=== PATIENT | male | born 1945 | race Caucasian/White ===

== ENCOUNTER 2018-02-15 07:52 | Day surgery (SDC) | payer MEDICARE, OTHER ==
[2018-02-12 09:38] VITALS: BMI 33.2
[~2018-02-15 07:52] MED LIST: DEXAMETHASONE SOD PHOSPHATE 10 MG/ML 1 ML VIAL IV ONE; HEPARIN SODIUM,PORCINE 5,000 UNIT/ML 1 ML VIAL SQ ONE; HYDROmorphone 0.5 MG/0.5 ML SYRINGE IVP PRN; LACTATED RINGERS 1,000 ML IV SCH; LIDOCAINE 1% 20 ML VIAL (10MG/ML) FOR IV START INTRADERMA PRN; ONDANSETRON 4 MG/2 ML VIAL IVP ONE; Pre Op ABX Message 1 EACH MISC MISCELLANE ONE; SCOPOLAMINE 1.5MG/72HR PATCH TRANSDERM ONE
--- NOTE | 2018-02-15 09:39 | P.GSHP ---
History of Present Illness H&P Date: 02/15/18 Chief Complaint: Basal cell carcinoma left shoulder This is a 72-year-old male who was previously diagnosed with left shoulder basal cell carcinoma. Patient is today for wide local excision. Past Medical History Past Medical History: Asthma, Cancer, Hyperlipidemia, Hypertension, Prostate Disorder Additional Past Medical History / Comment(s): hx. skin cancer, prostate cancer- no surgery or tx. yet-dr. monitoring History of Any Multi-Drug Resistant Organisms: None Reported Past Surgical History: Heart Catheterization, Hernia Repair, Orthopedic Surgery Additional Past Surgical History / Comment(s): repair of left elbow fx., colonoscopy Past Anesthesia/Blood Transfusion Reactions: Previous Problems w/ Anesthesia Additional Past Anesthesia/Blood Transfusion Reaction / Comment(s): slow to wake up after a colonoscopy Smoking Status: Former smoker - Past Family History Brother(s) Family Medical History: Cancer Additional Family Medical History / Comment(s): prostate,melanoma Sister(s) Family Medical History: Cancer Additional Family Medical History / Comment(s): lung Medications and Allergies Home Medications Medication Instructions Recorded Confirmed Type Aspirin 162.5 mg PO DAILY 02/12/18 02/15/18 History Beclazone Inhaler 2 puff INHALATION BID 02/12/18 02/15/18 History Cholecalciferol [Vitamin D3] 1,000 unit PO DAILY 02/12/18 02/15/18 History Citalopram Hydrobromide 20 mg PO DAILY 02/12/18 02/15/18 History [Citalopram HBr] Losartan Potassium [Cozaar] 100 mg PO DAILY 02/12/18 02/15/18 History Metoprolol Succinate [Toprol XL] 25 mg PO HS 02/12/18 02/15/18 History Multivitamin [Men's Multi-Vitamin] 1 each PO DAILY 02/12/18 02/15/18 History [place]-3 Fatty Acids/Fish Oil [Fish 1 each PO DAILY 02/12/18 02/15/18 History Oil 1,000 mg Softgel] Simvastatin [Zocor] 40 mg PO HS 02/12/18 02/15/18 History Vitamin B Complex 1 each PO DAILY 02/12/18 02/15/18 History amLODIPine [Norvasc] 5 mg PO DAILY 02/12/18 02/15/18 History Allergies Allergy/AdvReac Type Severity Reaction Status Date / Time No Known Allergies Allergy Verified 02/15/18 08:45 Surgical - Exam Vital Signs Temp Pulse Resp BP Pulse Ox 97.9 F 65 16 144/77 99 02/15/18 08:50 02/15/18 08:50 02/15/18 08:50 02/15/18 08:50 02/15/18 08:50 - General well developed, no distress - Eyes PERRL - ENT normal pinna - Neck no masses - Respiratory normal expansion - Cardiovascular Rhythm: regular - Abdomen Abdomen: soft, non tender - Integumentary 1 cm basal cell carcinoma of left shoulder Assessment and Plan Assessment: Left shoulder basal carcinoma. We'll perform excision.
[2018-02-15] MEDS ORDERED: fentaNYL (PF) 50 MCG/ML 2 ML AMP ONE (09:58)
[2018-02-15] MEDS ORDERED: PHENYLEPHRINE-0.9% NACL SYG 1 MG/10 ML SYRINGE ONE (09:58)
[2018-02-15] MEDS ORDERED: PROPOFOL 10 MG/ML 20 ML VIAL IV ONE (09:58)
[2018-02-15] MEDS ORDERED: LIDOCAINE 1% INJ 10MG/ML (20 ML MDV) ONE (09:58)
[2018-02-15] MEDS ORDERED: MIDAZOLAM 2 MG/2 ML VIAL ONE (09:58)
[2018-02-15] MEDS ORDERED: SUCCINYLCHOLINE CHLORIDE 100 MG/5 ML SYR IV ONE (09:58)
[2018-02-15] MEDS ORDERED: ePHEDrine SULFATE/0.9% NACL/PF 50 MG/5 ML SYRINGE IV ONE (09:58)
[2018-02-15] MEDS ORDERED: BUPIVACAIN-EPI 0.5%-1:200,000 30 ML VIAL SQ ONE ×2 (10:31)
[2018-02-15 10:50] VITALS: TEMP 97.4
[2018-02-15 11:04] VITALS: RESP 16
--- NOTE | 2018-02-15 11:09 | P.OP ---
Date of Procedure: 02/15/18 Preoperative Diagnosis: Basal cell carcinoma left shoulder Postoperative Diagnosis: Basal cell carcinoma left shoulder Procedure(s) Performed: Wide local excision of basal cell left shoulder Anesthesia: DEANNA Surgeon: Aden Scott Pathology: other (Basal cell carcinoma left shoulder) Condition: stable Disposition: PACU Description of Procedure: Patient's placed on the operative table lateral position. He received general anesthesia. His left shoulder was prepped and draped usual sterile fashion. Elliptical skin incision was made around the lesion. The lesion measured approximately 3 x 2 cm. The Bovie hemostasis. The skin was closed interrupted 3-0 nylon suture. Dermabond was applied. Patient top procedure well and was sent to recovery room stable condition.
[2018-02-15 11:49] VITALS: BP 122/75; PULSE 85
== END 2018-02-15 12:16 | disposition home or self-care (01) ==
LOC: OR 07:52
PROVIDERS: ATTEND Surgery
DX: C44.619 Basal cell carcinoma of skin of left upper limb, including shoulder (principal); I10 Essential (primary) hypertension; G47.33 Obstructive sleep apnea (adult) (pediatric); F39 Unspecified mood [affective] disorder; E78.5 Hyperlipidemia, unspecified; J44.9 Chronic obstructive pulmonary disease, unspecified; C61 Malignant neoplasm of prostate; K21.9 Gastro-esophageal reflux disease without esophagitis; Z99.89 Dependence on other enabling machines and devices; Z85.828 Personal history of other malignant neoplasm of skin; Z87.891 Personal history of nicotine dependence; Z79.82 Long term (current) use of aspirin; Z79.899 Other long term (current) drug therapy
CPT/HCPCS: 88305; 11603; J2250; J1644; J1100; J2405; J2001; J3010; J2370; J0330; J2704

== ENCOUNTER → 2018-05-04 | Outpatient (CLI) | payer MEDICARE, OTHER ==
--- NOTE | 2018-05-06 16:32 | MR ---
EXAMINATION TYPE: MR Prostate wo/w con DATE OF EXAM: 05/04/2018 COMPARISON: None IMAGE QUALITY: Good. INDICATION: Prostate Cancer PSA: 4.8 ng/ml Recent Biopsy and Date: 07/07/2015 and 07/11/2016 Pathology Report (If Applicable): In 2017 5% Nadya 6 prostate carcinoma was identified within the r ight lateral apex. In 2016 5% Nady[place] 6 prostate carcinoma was identified within the left apex. TECHNIQUE: Examination was performed using a 3T MRI without an endorectal coil. Multiparametric imaging was perf ormed with T2 mutliplanar sequences, axial diffusion weighted imaging and dynamic contrast enhanced i maging, utilizing 10 mL intravenous Gadavist gadolinium contrast. FINDINGS: There is no clinically significant cancer identified. PROSTATE VOLUME: 6.7 x 5.2 x 6.4 cm corresponds to a volume of 116 PSA DENSITY: 13.9 ng/ml/cc There is a 4 mm circumscribed T2 hypointense region within the right lateral peripheral zone apex dem onstrating focal mild hypointensity on ADC map and focal mild hyperintensity on DWI. This may corresp ond with the biopsy-proven Nadya 6 carcinoma without perineural invasion. No focal or early contras t enhancement is seen. Ill-defined hypodensity within the left peripheral zone apex is seen on image 17 of a small field-of- view T2 weighted images without suspicious features on ADC map or DWI. Within the remainder the peripheral zone there are numerous wedge-shaped areas of hypointensity most compatible with fibrosis or prostatitis. There are circumscribed hypointense and heterogenous encapsu lated nodules throughout the transitional zone compatible with moderate benign prostatic hyperplasia. Trabeculation of the urinary bladder wall suggests chronic bladder outlet obstruction sequela. IMPRESSION: 1. PI-RADS 3-. Clinically significant cancer is equivocal regarding a 4 mm focal lesion in the right lateral peripheral zone apex. Highest Assessment Category: 3 2. Findings compatible with moderate benign prostatic hyperplasia and findings suggesting chronic uri nary bladder outlet obstruction. False negative rates for MRI range from 5-20% depending on risk profile. Assessment Categories: 1 ? Very low (clinically significant cancer is highly unlikely to be present) 2 ? Low (clinically significant cancer is unlikely to be present) 3 ? Intermediate (the presence of clinically significant cancer is equivocal) 4 ? High (clinically significant cancer is likely to be present) 5 ? Very high (clinically significant cancer is highly likely to be present) Locations: PZ = peripheral zone; TZ = transition zone CZ=central zone; AFS = anterior fibromuscular stroma a=anterior half (i.e. PZa=anterior half of peripheral zone); pm= posterior medial (i.e PZpm) pl = postero-lateral (i.e. PZpl); p = posterior half (i.e. TZp) ; a = anterior half (i.e TZa or P Za) Other: N=no or no; E= equivocal; Y=yes EPE = extraprostatic extension NVB = neurovascular bundle NA = not applicable/not available
== END | disposition home or self-care (01) ==
LOC: RADMRIMAIN 09:05
PROVIDERS: ATTEND Urology
DX: C61 Malignant neoplasm of prostate (principal); N40.0 Benign prostatic hyperplasia without lower urinary tract symptoms
CPT/HCPCS: 72197; A9585

== ENCOUNTER → 2021-08-25 | Outpatient (CLI) | payer MEDICARE, OTHER ==
--- NOTE | 2021-08-28 10:21 | MR ---
EXAMINATION TYPE: MR Prostate wo/w con DATE OF EXAM: 08/25/2021 COMPARISON: Prior prostate MRI May 04, 2018 INDICATION: Prostate ca PSA: 3.7 ng/ml on November 06, 2019 Recent Biopsy and Date: May 13, 2019 Pathology Report (If Applicable): Benign results. Prior biopsy was positive. TECHNIQUE: Examination was performed using a 3T MRI without an endorectal coil. Multiparametric imaging was perf ormed with T2 mutliplanar sequences, axial diffusion weighted imaging and dynamic contrast enhanced i maging, utilizing 10 mL intravenous Gadavist gadolinium contrast. FINDINGS: There is no clinically significant cancer identified. PROSTATE VOLUME: 6.4 cm SI x 6.2 cm AP x 6.6 cm LR Vol= 137.1 cc Predicted PSA equals 16.45 PSA DENSITY: 0.03 ng/ml/cc Markedly enlarged prostate consistent with BPH is redemonstrated. Peripheral zone shows no new areas of diminished signal on ADC mapping with increased signal on diffusion-weighted imaging. Persistent r ight lateral mid to apical level approximate 6 to 7 mm area of diminished signal on ADC mapping with minimal increased signal on diffusion-weighted images. Overall heterogeneity in the central enlarged transitional zone is redemonstrated. No new lesions of significance or suspicious T2 hypointensity. P rostate capsule is maintained. Bladder shows mild wall thickening and trabeculation. 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 No groin herni a or adenopathy is seen. No suspicious bowel dilatation. Diverticula throughout the visualized sigmoi d colon are present. IMPRESSION: A focus of clinically significant cancer is not identified. Highest Assessment Category: 2 MRI Stage: T1c N0 M0 based on review of pelvic images. False negative rates for MRI range from 5-20% depending on risk profile. Assessment Categories: 1 ? Very low (clinically significant cancer is highly unlikely to be present) 2 ? Low (clinically significant cancer is unlikely to be present) 3 ? Intermediate (the presence of clinically significant cancer is equivocal) 4 ? High (clinically significant cancer is likely to be present) 5 ? Very high (clinically significant cancer is highly likely to be present) Locations: PZ = peripheral zone; TZ = transition zone CZ=central zone; AFS = anterior fibromuscular stroma a=anterior half (i.e. PZa=anterior half of peripheral zone); pm= posterior medial (i.e PZpm) pl = postero-lateral (i.e. PZpl); p = posterior half (i.e. TZp) ; a = anterior half (i.e TZa or P Za) Other: N=no or no; E= equivocal; Y=yes EPE = extraprostatic extension NVB = neurovascular bundle NA = not applicable/not available
== END | disposition home or self-care (01) ==
LOC: RADMRIMAIN 07:49
PROVIDERS: ATTEND Urology
DX: C61 Malignant neoplasm of prostate (principal); M87.851 Other osteonecrosis, right femur; M87.852 Other osteonecrosis, left femur
CPT/HCPCS: 72197; A9585

== ENCOUNTER → 2024-06-06 | Outpatient (CLI) | payer MEDICARE, OTHER ==
[2024-06-06 09:44] LABS: Partial Thromboplastin Time 26.1 sec (22.0-30.0); Prothrombin Time 10.8 sec (10.0-12.5)
[2024-06-06 15:33] LABS: Basophils # (A) 0.04 X 10*3/uL (0.00-0.10); Basophils % (A) 0.6 %; Eosinophils % (A) 3.1 %; HCT 43.8 % (39.6-50.0); HGB 14.3 g/dL (13.0-17.0); Lymphocytes # (A) 1.29 X 10*3/uL (0.90-5.00); Lymphocytes % (A) 20.2 %; MCH 30.4 pg (27.0-32.0); MCHC 32.6 g/dL (32.0-37.0); Mean Platelet Volume 10.5 FL (9.5-12.2); Monocytes # (A) 0.54 X 10*3/uL (0.20-1.00); Monocytes % (A) 8.5 %; NRBC Per 100 WBC 0 X 10*3/uL (0.00-0.01); Neutrophils # (A) 4.29 X 10*3/uL (1.80-7.70); Neutrophils % (A) 67.3 %; Platelet Count 205 X 10*3/uL (140-440); RBC 4.71 X 10*6/uL (4.40-5.60); RDW 13.3 % (11.5-14.5); WBC 6.38 X 10*3/uL (4.50-10.00)
[2024-06-06 15:45] LABS: ALT 13 U/L (10-49); AST 16 U/L (14-35); Albumin 4.4 g/dL (3.8-4.9); Albumin/Globulin Ratio 1.69 Ratio (1.60-3.17); Alkaline Phosphatase 70 U/L (41-126); BUN/Creat Ratio 13.73 Ratio (12.00-20.00); Blood Urea Nitrogen 15.1 mg/dL (9.0-27.0); Calcium 9.1 mg/dL (8.7-10.3); Carbon Dioxide 27.3 mmol/L (21.6-31.8); Chloride 105 mmol/L (96-109); Globulin 2.6 g/dL (1.6-3.3); Glucose 141 mg/dL (70-110); Potassium 4.3 mmol/L (3.5-5.5); Sodium 143 mmol/L (135-145); Total Bilirubin 0.4 mg/dL (0.3-1.2)
== END | disposition home or self-care (01) ==
LOC: LABPAT 09:03
PROVIDERS: ATTEND Orthopaedic Surgery
DX: Z01.818 Encounter for other preprocedural examination (principal); Z22.322 Carrier or suspected carrier of Methicillin resistant Staphylococcus aureus; M17.11 Unilateral primary osteoarthritis, right knee; E11.9 Type 2 diabetes mellitus without complications
CPT/HCPCS: 80053; 83036; 85025; 85610; 85730; 87070

== ENCOUNTER → 2024-06-11 | Outpatient (CLI) | payer MEDICARE, OTHER ==
--- NOTE | 2024-06-11 14:59 | CT ---
CT right knee, TRIPP protocol. HISTORY: Knee pain COMPARISON: None TECHNIQUE: Multiple axial images are obtained through the lower extremities without use of IV contras t material. The exam was performed according to the TRIPP protocol FINDINGS: There is moderate osteopenia. There is marked narrowing, moderate hypertrophic spurring and mild subchondral sclerosis in the media l compartment knee consistent with marked osteoarthritis. The lateral joint space is well preserved. There is mild hypertrophic spurring.. The patellofemoral joint space is well-preserved. There is mild hypertrophic spurring indicating mild osteoarthritis. . There is no acute fracture or dislocation. The hips are normal and symmetric bilaterally without fracture, dislocation or arthritic change. The ankles are normal and symmetrical without osteoarthritic change, fracture, dislocation or focal i ntraosseous abnormality. IMPRESSION: 1. Marked osteoarthritis of the medial compartment knee. 2 Mild osteoarthritic changes of the lateral and patellofemoral compartments with well-preserved join t spaces. 4. Unremarkable hips and ankles. [facility], , 06/11/2024 2:56 PM
== END | disposition home or self-care (01) ==
LOC: RADCTMAIN 12:18
PROVIDERS: ATTEND Orthopaedic Surgery
DX: M17.11 Unilateral primary osteoarthritis, right knee (principal)

== ENCOUNTER 2024-06-20 11:05 | Day surgery (SDC) | payer MEDICARE, OTHER ==
[~2024-06-20 11:05] MED LIST changes: -DEXAMETHASONE SOD PHOSPHATE 10 MG/ML 1 ML VIAL IV ONE; -HEPARIN SODIUM,PORCINE 5,000 UNIT/ML 1 ML VIAL SQ ONE; -LACTATED RINGERS 1,000 ML IV SCH; -LIDOCAINE 1% 20 ML VIAL (10MG/ML) FOR IV START INTRADERMA PRN; -ONDANSETRON 4 MG/2 ML VIAL IVP ONE; -Pre Op ABX Message 1 EACH MISC MISCELLANE ONE; -SCOPOLAMINE 1.5MG/72HR PATCH TRANSDERM ONE
[2024-06-20 12:54] LABS: Glucose,Whole Blood 115 mg/dL (70-110)
[2024-06-20] MEDS: MIDAZOLAM 2 MG/2 ML VIAL IV PRN (12:59)
[2024-06-20] MEDS: fentaNYL (PF) 50 MCG/ML 2 ML AMP IVP PRN (12:59)
[2024-06-20] MEDS: IV FLUID CONTINUATION 1,000 ML IV ONE (13:13)
[2024-06-20] MEDS: ONDANSETRON 4 MG/2 ML VIAL IVP STA (13:15)
[2024-06-20] MEDS: dexAMETHasone ORAL SOLUTION 10 MG/ML VIAL PO ONE (13:16)
[2024-06-20] MEDS: FAMOTIDINE 20 MG/2 ML VIAL IV STA (13:16)
[2024-06-20] MEDS: KETOROLAC 15 MG/ML 1 ML VIAL IVP STA (13:20)
[2024-06-20] MEDS: oxyCODONE ER 10 MG TAB.ER.12H PO STA (13:29)
[2024-06-20] MEDS: ACETAMINOPHEN TAB 500 MG TAB PO STA ×2 (13:30→18:05)
--- NOTE | 2024-06-20 14:00 | P.ANPRN ---
Procedure Note - Anesthesia - Nerve Block Performed Right Adductor Canal Single Time Out Performed: Yes (1259) Date of Procedure: 06/20/24 Procedure Start Time: 13:00 Procedure Stop Time: 13:05 Location of Patient: PreOp Indication: Acute Post-Operative Pain, Requested by Surgeon Specifically requested for management of pain by DrMachelle: Adalberto Trevino Sedation Type: Sedate with meaningful contact maintained Preparation: Sterile Prep Position: Supine Catheter: None Needle Types: Pajunk Needle Gauge: 21 Ultrasound used to visualize needle placement: Yes Ultrasound used to observe medication spread: Yes Injectate: 0.5% Ropivacaine (see comment for volume) (15cc+10cc nacl pf) Blood Aspirated: No Pain Paresthesia on Injection Noted: No Resistance on Injection: Normal Image Stored and Saved: Yes Events: Uneventful and Well Tolerated
--- NOTE | 2024-06-20 14:01 | P.ANPRN ---
Procedure Note - Anesthesia - Nerve Block Performed Right iPack Single Time Out Performed: Yes (0229) Date of Procedure: 06/20/24 Procedure Start Time: 13:06 Procedure Stop Time: 13:09 Location of Patient: PreOp Indication: Acute Post-Operative Pain, Requested by Surgeon Specifically requested for management of pain by DrMachelle: Adalberto Trevino Sedation Type: Sedate with meaningful contact maintained Preparation: Sterile Prep Position: Supine Catheter: None Needle Types: Pajunk Needle Gauge: 21 Ultrasound used to visualize needle placement: Yes Ultrasound used to observe medication spread: Yes Injectate: 0.5% Ropivacaine (see comment for volume) (15cc+10cc nacl pf) Blood Aspirated: No Pain Paresthesia on Injection Noted: No Resistance on Injection: Normal Image Stored and Saved: Yes Events: Uneventful and Well Tolerated
[2024-06-20] MEDS ORDERED: MIDAZOLAM 2 MG/2 ML VIAL ONE (14:29)
[2024-06-20] MEDS ORDERED: GLYCOPYRROLATE 0.2 MG/ML 2 ML VIAL ONE (14:29)
[2024-06-20] MEDS ORDERED: PROPOFOL 10 MG/ML 20 ML VIAL IV ONE (14:29)
[2024-06-20] MEDS ORDERED: SODIUM CHLORIDE 0.9% (PF) 10 ML VIAL ONE (14:29)
[2024-06-20] MEDS ORDERED: fentaNYL (PF) 50 MCG/ML 2 ML AMP ONE (14:29)
[2024-06-20] MEDS ORDERED: SUCCINYLCHOLINE CHLORIDE 200 MG/10 ML VIAL IV ONE (14:29)
[2024-06-20] MEDS ORDERED: ROPIVACAINE 5 MG/ML 30 ML VIAL ONE (14:29)
[2024-06-20] MEDS ORDERED: TRANEXAMIC 1,000 MG/100ML-NACL PREMIX BAG ONE (14:29)
[2024-06-20] MEDS ORDERED: ROCURONIUM 10 MG/ML (5 ML VIAL) IV ONE (14:29)
[2024-06-20] MEDS ORDERED: LIDOCAINE 1% INJ 10MG/ML (20 ML MDV) ONE (14:29)
[2024-06-20] MEDS ORDERED: ePHEDrine 50 MG/ML 1 ML VIAL ONE (14:29)
[2024-06-20] MEDS: ROPIVACAINE/EPI/CLONIDINE/KET 50 ML SYRINGE MISCELLANE PRN (15:14)
[2024-06-20] MEDS ORDERED: NALOXONE 0.4 MG/ML 1 ML VIAL IV PRN (16:18)
[2024-06-20] MEDS ORDERED: MAGNESIUM HYDROXIDE 2,400 MG/30 ML CUP PO PRN (16:18)
[2024-06-20] MEDS ORDERED: ONDANSETRON 4 MG/2 ML VIAL IVP PRN (16:18)
[2024-06-20] MEDS ORDERED: HYDROmorphone 0.5 MG/0.5 ML SYRINGE IVP PRN ×2 (16:18)
[2024-06-20] MEDS ORDERED: NA PHOS,M-B/NA PHOS,DI-BA 133 ML ENEMA RECTAL PRN (16:18)
[2024-06-20] MEDS ORDERED: bisacodyL 10 MG SUPP RECTAL PRN (16:18)
[2024-06-20] MEDS ORDERED: diazePAM 5 MG TAB PO PRN (16:18)
[2024-06-20] MEDS ORDERED: TEMAZEPAM 15 MG CAP PO PRN (16:18)
--- NOTE | 2024-06-20 16:18 | P.OP ---
Date of Procedure: 06/20/24 Preoperative Diagnosis: Severe right knee osteoarthritis Postoperative Diagnosis: Same Procedure(s) Performed: 1. Right total knee arthroplasty 2. Computer assisted musculoskeletal navigation using CT/MRI images Implants: 1. [place] [employer] CR Femur Size #4 2. [place] [employer] [place] Tibial Base Size #5 3. [place] [employer] CS poly Size #5, 9-mm 4. [place] [employer] all poly patella, Size #32 Anesthesia: DEANNA, regional Surgeon: Adalberto Trevino Fountain Manager #1: Caden Leone Estimated Blood Loss (ml): 100 IV fluids (ml): 800 Pathology: none sent Condition: stable Disposition: PACU Indications for Procedure: I met with the patient preoperatively in the office setting and discussed treatment of their symptomatic knee arthritis. They failed a long course of nonsurgical treatment and elected to proceed with an elective total knee replacement. I discussed the potential risks and complications at length and gave them ample time to ask questions. Risks discussed included: risks from anesthesia, superficial site surgical infection, acute and/or chronic periprosthetic joint infection, delayed wound healing, drainage, wound necrosis, instability, stiffness, stiffness requiring manipulation and/or revision surgery, damage to local blood vessels or nerves, aseptic loosening of the implants, extensor mechanism issues including disruption, patellar maltracking, avascular necrosis etc., continued or worsened knee pain, generalized dissatisfaction with surgical outcome, need for revision surgery, an inability to regain preinjury level of function, DVT, PE, other medical complications, and possibly loss of life or limb. The patient voiced their understanding that while these are the most common complications other less common complications are possible. They provided both their verbal and written consent to go forward with surgery. Operative Findings: Severe tricompartmental osteoarthritis Description of Procedure: The patient was identified in preoperative holding and the correct operative extremity was verified and marked with a marker. I reviewed the consent form with the patient at length. All of their questions were answered. The patient was given a block by anesthesia. They were then brought back to the operating room. They were transferred onto the operating room table where a general anesthetic, preoperative antibiotics, and tranexamic acid were administered by anesthesia. A tourniquet was applied to the proximal aspect of the operative extremity. The contralateral extremity was padded under the heel and secured to the operating room table with a nonsterile blue towel and tape. The ipsilateral arm was carefully draped across the patient's chest and secured with a pillow and foam. A post was applied over the lateral aspect of the ipsilateral thigh and a bolster was placed under the ipsilateral foot. I verified that the operative extremity was stable and the knee was flexed to 90. The operative extremity was then placed in a leg neff, nonsterile drapes were applied, and the extremity was prepped and draped sterilely in the standard sterile fashion. Prior to starting surgery timeout was performed identifying the correct patient, operative extremity, and procedure. The leg was then elevated, exsanguinated with an Esmarch bandage, and the tourniquet was inflated. An anterior midline incision was made sharply with a scalpel. Once I had dissected deep to the superficial fascial layer medial and lateral flaps were elevated. A medial parapatellar arthrotomy was created. Upon opening the knee joint there were diffuse arthritic changes in all 3 compartments. The anterior horn of the medial meniscus were sharply released and a medial release was performed around the posterior medial corner of the knee to facilitate retractor placement. The fat pad was excised with electrocautery. The patella was found to be severely arthritic and a provisional cut was made with a sagittal saw to facilitate mobilization of the extensor mechanism during the procedure. Remnants of the ACL and PCL were then excised from the notch. 4 mm pins were then placed within the incision in the medial distal femur and proximal tibia. Arrays were applied to the pins and I verified they were completely tightened. The knee was then registered with the myseekit robot and manipulations in implant position were made to balance the knee and opitmize implant position. Using the Benito robotic saw all cuts were made in accordance with our plan. After all bony fragments had been removed the cuts were verified with the planar probe. The tibia was then subluxed forward and sized. The knee was brought into flexion and a lamina internal audit senior manager was placed to allow removal of the meniscal remnants both medially and laterally as well as posterior osteophytes. Local anesthetic was then infiltrated around the joint capsule. Trial implants were then placed within the knee. Range of motion and collateral ligament tension was then evaluated. Adjustments in implant size and position were then made accordingly. Once the knee was felt to be appropriately balanced the Benito pins were removed. The patella was then recut, sized, and punched. A trial patellar button was then placed. With the trial components in place, the patella tracked midline. The femur was then drilled and the trial component removed. The trial tibial component was then appropriately rotated, pinned, and prepared for the keel. All trial components were then removed from the knee. The knee was thoroughly irrigated with pulsatile lavage. Cement was prepared via vacuum mixing in a bowl on the back table. I then hand pressurized cement into the femur and tibia and placed the implants beginning with the tibial base tray and poly liner, femoral component, and finally the patellar button. All extruded cement was removed including from the pin sites. Once the cement had hardened the knee was evaluated one final time with the final polyethylene liner in place. The knee had full extension and flexion and felt stable to varus and valgus stress throughout the arc of motion. The tourniquet was released and with the tourniquet down the patella tracked midline. All bleeders were controlled with electrocautery. The knee was then soaked for 3 minutes with a dilute Betadine soak. The knee was thoroughly irrigated using 3 L of sterile saline and pulsatile lavage. A deep drain was placed. The extensor mechanism was then reapproximated using pop off Vicryl sutures followed by a running barbed suture. The knee was then closed in layers with a 0 strata fix for the deep fascial layer, 2-0 strata fix for the superficial subcutaneous layer and Monocryl and Steri-Strips for the skin. A sterile dressing and drain sponge were applied. I verified that all instrument, sponge, and sharp counts were correct. The patient was then transferred off the operating room table, extubated, and brought to recovery having tolerated the procedure well. Caden Leone PA-C was required as a skilled equal opportunity assistant due to the complexity of surgery for patient positioning, draping, exposure, retraction, closure of wound and application of dressing. PLAN: The patient can weight-bear as tolerated on the operative extremity. DVT prophylaxis with aspirin 81 mg twice a day based on preoperative risk stratification. Follow-up in the office in 2 weeks for wound check and x-rays of the knee including an AP and lateral.
--- NOTE | 2024-06-20 17:17 | XR ---
EXAMINATION TYPE: XR knee limited RT DATE OF EXAM: 06/20/2024 5:01 PM COMPARISON: None CLINICAL INDICATION: Male, 78 years old with history of Evaluation for Postop abnormality and alignme nt; PHH, pain TECHNIQUE: XR knee limited RT 2 views submitted. FINDINGS: Status post total knee arthroplasty changes with hardware in appropriate alignment and in tact. No evidence of fracture. Subcutaneous lucencies and lucencies within the joint consistent with surgical changes. IMPRESSION: Status post total knee arthroplasty changes with hardware intact and appropriate alignment. No fractu res identified. [facility], , 06/20/2024 5:14 PM
[2024-06-20 17:31] LABS: Glucose,Whole Blood 161 mg/dL (70-110)
[2024-06-20] MEDS: TRANEXAMIC 1,000 MG/100ML-NACL 1,000 MG in SALINE 1 100ML.BAG IVPB ONE ×2 (18:04)
[2024-06-20] MEDS: LACTATED RINGERS 1,000 ML IV SCH (18:04)
[2024-06-20] MEDS: dexAMETHasone ORAL SOLUTION 4 MG/ML VIAL PO ONE (18:05)
[2024-06-20] MEDS: DOCUSATE 100 MG CAP PO STA (18:05)
[2024-06-20 20:45] LABS: Glucose,Whole Blood 185 mg/dL (70-110)
[2024-06-20] MEDS: HYDROcodone/APAP 5-325MG 1 EACH TAB PO PRN (22:24)
[2024-06-20] MEDS: SENNOSIDES-DOCUSATE SODIUM 1 EACH TAB PO SCH (22:24)
[2024-06-20] MEDS: ASPIRIN 81 MG PO SCH (22:25)
[2024-06-20] MEDS ORDERED: PANTOPRAZOLE 40 MG TABLET PO PRN (22:47)
[2024-06-20] MEDS ORDERED: ALBUTEROL NEBULIZED 2.5 MG/3 ML INHALATION PRN (22:50)
--- NOTE | 2024-06-20 22:52 | P.CONS ---
History of Present Illness - Reason for Consult Consult date: 06/20/24 Medical management - Chief Complaint Osteoarthritis of right knee status post TKA - History of Present Illness Patient is a 78-year-old male with past medical history of A-fib on Eliquis, hypertension and asthma who is status post right total knee arthroplasty with Dr. Trevino. [facility] physicians consulted for medical management. Patient denies any chest pain, shortness of breath, abdominal pain, nausea, vomiting, urinary or bowel complaints. Patient states pain is well-controlled and is not having difficulty voiding. He denies passing flatus or having a BM at this time. Patient is also ambulating to the bathroom.. He denies any headaches, nausea, vomiting, fevers or chills, chest pain, shortness of breath, palpitations, dizziness. No recent labs. Patient reports ongoing 4/10 R knee pain at the time of interview. Pertinent positives and negatives as discussed in HPI, a complete review of systems was performed and all other systems are negative. Patient seen and examined at bedside. Physical examination: Vital signs reviewed General: nontoxic, no distress, appears at stated age Derm: warm, dry, intact Head: atraumatic, normocephalic, symmetric Eyes: anicteric sclera Mouth: no lip lesion, mucus membranes moist Cardiovascular: S1 S2 reg, no murmur Lungs: CTA bilateral, no rhonchi, no rales, no accessory muscle use Abdominal: soft, non-tender to palpation, nondistended Extremities: No cyanosis, clubbing, or pedal edema. Neuro: Alert, Oriented to person, time and place, Gross neurological examination did not reveal any focal deficits. Cranial nerves II to XII grossly intact. Bilateral upper and lower extremity muscle strength intact and sensation intact with the exception of R knee due to recent surgery, distal RLE strength at the ankle intact Psych: well appearing, appropriate affect Assessment/Plan: 78-year-old male with past medical A-fib on Eliquis, hypertension, and asthma who is status post right knee TKA with Dr. Trevino. We have been asked to see the patient in consultation for medical management. Acute: Osteoarthritis of the right knee status post TKA Pain control and DVT prophylaxis per primary team Chronic: A-fib (anticoagulated with Eliquis) Will defer resumption of anticoagulation to primary surgery team Continue Cardizem 180 mg daily Continue Lopressor 50 mg twice daily Continue simvastatin 40 mg at bedtime Hypertension Continue hydralazine 25 mg twice daily Continue Lopressor 50 mg twice daily Continue losartan 100 mg daily Asthma Continue albuterol every 6 hours as needed Continue Singulair 10 mg p.o. at bedtime GERD Continue pantoprazole 40 mg daily CODE STATUS: Full code Patient has been medically optimized for discharge. Will continue to follow. Thank you for this consultation. Past Medical History Past Medical History: Atrial Fibrillation, Asthma, Cancer, Diabetes Mellitus, GERD/Reflux, Hyperlipidemia, Hypertension, Osteoarthritis (OA), Prostate Disorder, Sleep Apnea/CPAP/BIPAP Additional Past Medical History / Comment(s): hx. skin cancer, enlarged prostate, pre diabetes, paroxysmal atrial fibrillation, uses CPAP History of Any Multi-Drug Resistant Organisms: None Reported Past Surgical History: Heart Catheterization, Hernia Repair, Orthopedic Surgery Additional Past Surgical History / Comment(s): repair of Lt. elbow fx., colonoscopy, umbilical hernia repair Past Anesthesia/Blood Transfusion Reactions: Previous Problems w/ Anesthesia Additional Past Anesthesia/Blood Transfusion Reaction / Comm: slow to wake up after a colonoscopy x 2. hx. nightmares, PTSD Past Psychological History: Anxiety, Depression, PTSD Additional Psychological History / Comment(s): Pt. does self hypnosis. Smoking Status: Former smoker Past Alcohol Use History: Occasional Additional Past Alcohol Use History / Comment(s): quit smoking 1969, smoked for 2 yrs. Past Drug Use History: None Reported - Past Family History Brother(s) Family Medical History: Cancer Additional Family Medical History / Comment(s): prostate, melanoma Sister(s) Family Medical History: Cancer Additional Family Medical History / Comment(s): lung Mother Family Medical History: CVA/TIA Additional Family Medical History / Comment(s): post carotid CVA Medications and Allergies Home Medications Medication Instructions Recorded Confirmed Type Cholecalciferol [Vitamin D3] 1,000 unit PO DAILY 02/12/18 06/16/24 History Citalopram Hydrobromide 40 mg PO DAILY 02/12/18 06/16/24 History [Citalopram HBr] Losartan Potassium [Cozaar] 100 mg PO DAILY 02/12/18 06/16/24 History Multivitamin [Men's Multi-Vitamin] 1 each PO DAILY 02/12/18 06/16/24 History Albuterol Inhaler [Ventolin Hfa 1 - 2 puff INHALATION Q6H PRN 06/16/24 06/16/24 History Inhaler] Apixaban [Eliquis] 5 mg PO BID 06/16/24 06/16/24 History Diltiazem Cd [Cardizem CD] 180 mg PO DAILY 06/16/24 06/16/24 History Glucosamine-Chondr 500-400Mg 1 each PO DAILY 06/16/24 06/16/24 History Ibuprofen [Advil] 400 mg PO Q6H PRN 06/16/24 06/16/24 History Metoprolol Tartrate [Lopressor] 50 mg PO BID 06/16/24 06/16/24 History Montelukast [Singulair] 10 mg PO HS 06/16/24 06/16/24 History Omeprazole 20 mg PO DAILY PRN 06/16/24 06/16/24 History Simvastatin 40 mg PO HS 06/16/24 06/16/24 History hydrALAZINE HCL [Apresoline] 25 mg PO BID 06/16/24 06/16/24 History tadalafiL [Cialis] 5 mg PO DAILY PRN 06/16/24 06/16/24 History Allergies Allergy/AdvReac Type Severity Reaction Status Date / Time No Known Allergies Allergy Verified 06/20/24 12:01 Physical Exam Vitals: Vital Signs Temp Pulse Pulse Resp BP Pulse Ox 06/20/24 18:10 97.5 F L 62 16 126/69 94 L 06/20/24 17:40 62 17 123/61 95 06/20/24 17:25 66 16 124/69 95 06/20/24 17:10 60 16 123/65 95 06/20/24 16:55 64 16 115/55 97 06/20/24 16:40 97.3 F L 60 16 114/54 95 06/20/24 13:11 46 L 14 124/67 96 06/20/24 12:25 98.0 F 48 L 16 129/61 97 Intake and Output 06/20/24 06/20/24 06/20/24 06:59 14:59 22:59 Intake Total 850 0 Output Total 100 Balance 850 -100 Intake: IV 850 0 Output: Estimated Blood Loss 100 Other: Weight 96.3 kg 96.3 kg Results Labs: Abnormal Lab Results - Last 24 Hours (Table) 06/20/24 06/20/24 06/20/24 Range/Units 12:50 17:29 20:44 POC Glucose (mg/dL) 115 H 161 H 185 H (70-110) mg/dL
[2024-06-20] MEDS: SODIUM CHLORIDE 0.9% 1,000 ML IV SCH (23:07)
[2024-06-21] MEDS: hydrOXYzine pamoate 25 MG CAP PO PRN (02:47)
[2024-06-21 06:22] LABS: Glucose,Whole Blood 170 mg/dL (70-110)
[2024-06-21] MEDS: hydrALAZINE HCL 25 MG TAB PO SCH (08:31)
[2024-06-21] MEDS: METOPROLOL TARTRATE 50 MG TAB PO SCH (08:31)
[2024-06-21] MEDS: LOSARTAN 50 MG TAB PO SCH (08:31)
[2024-06-21] MEDS: DILTIAZEM CD 180 MG CAP.ER.24H PO SCH (08:31)
--- NOTE | 2024-06-21 08:46 | P.PN ---
Subjective Progress Note Date: 06/21/24 Patient is doing well this morning. The pain in his knee is relatively well- controlled. The patient is asking to discharge to rehab. Objective - Vital Signs Vital signs: Vital Signs Temp 97.6 F 06/21/24 07:14 Pulse 63 06/21/24 07:14 Resp 18 06/21/24 07:14 BP 118/67 06/21/24 07:14 Pulse Ox 93 L 06/21/24 07:14 FiO2 Intake & Output 06/20/24 06/21/24 06/21/24 18:59 06:59 18:59 Intake Total 850 540 Output Total 100 Balance 750 540 Weight 96.3 kg Intake: IV 850 Oral 540 Output: Estimated Blood Loss 100 Other: Voiding Method Toilet # Voids 3 - Exam Patient was examined this morning. Is sitting in bed. He is alert and able to answer questions. A focused exam of the right knee was conducted. His dressing is intact with no drainage or strikethrough. His thigh and calf are soft and compressible. He is able to perform a straight leg raise. He is able to actively plantarflex and dorsiflex his ankle and his toes. - Labs Labs: Abnormal Lab Results - Last 24 Hours (Table) 06/20/24 06/20/24 06/20/24 Range/Units 12:50 17:29 20:44 POC Glucose (mg/dL) 115 H 161 H 185 H (70-110) mg/dL 06/21/24 Range/Units 06:21 POC Glucose (mg/dL) 170 H (70-110) mg/dL Assessment and Plan Assessment: POD #1 status post right total knee replacement Plan: 1. Weightbearing as tolerated on the operative extremity. Up with assistance and a walker. 2. DVT prophylaxis ok to resume home dose of Eliquis (5mg BID) this morning. Will continue home dose after d/c. 3. Physical therapy for gait training and mobilization 4. Leave surgical dressing in place. 5. Internal medicine for perioperative medical management 6. Disposition: The patient would like to discharge to rehab. We will see how he does with physical therapy and reassess his discharge plan tomorrow.
[2024-06-21 09:57] LABS: Basophils # (A) 0.01 X 10*3/uL (0.00-0.10); Basophils % (A) 0.1 %; Eosinophils # (A) 0 X 10*3/uL (0.04-0.35); Eosinophils % (A) 0 %; HCT 40.8 % (39.6-50.0); HGB 12.8 g/dL (13.0-17.0); Lymphocytes # (A) 0.69 X 10*3/uL (0.90-5.00); Lymphocytes % (A) 4.9 %; MCH 29.5 pg (27.0-32.0); MCHC 31.4 g/dL (32.0-37.0); Mean Platelet Volume 10.7 FL (9.5-12.2); Monocytes # (A) 0.65 X 10*3/uL (0.20-1.00); Monocytes % (A) 4.6 %; NRBC Per 100 WBC 0 X 10*3/uL (0.00-0.01); Neutrophils # (A) 12.57 X 10*3/uL (1.80-7.70); Neutrophils % (A) 89.9 %; Platelet Count 203 X 10*3/uL (140-440); RBC 4.34 X 10*6/uL (4.40-5.60); RDW 13.2 % (11.5-14.5); WBC 13.99 X 10*3/uL (4.50-10.00)
[2024-06-21] MEDS: APIXABAN 5 MG TAB PO SCH (11:00)
[2024-06-21 11:41] LABS: Glucose,Whole Blood 215 mg/dL (70-110)
[2024-06-21] MEDS ORDERED: DEXTROSE 50% SYRINGE 50 ML IVP PRN ×2 (11:57)
--- NOTE | 2024-06-21 12:00 | P.PN ---
Subjective Progress Note Date: 06/21/24 Patient is a 78-year-old male with past medical history of A-fib on Eliquis, hypertension and asthma who is status post right total knee arthroplasty with Dr. Trevino. [facility] consulted for medical management. Patient denies any chest pain, shortness of breath, abdominal pain, nausea, vomiting, urinary or bowel complaints. Patient states pain is well-controlled and is not having difficulty voiding. He denies passing flatus or having a BM at this time. Patient is also ambulating to the bathroom.. He denies any headaches, nausea, vomiting, fevers or chills, chest pain, shortness of breath, palpitations, dizziness. No recent labs. Patient reports ongoing 4/10 R knee pain at the time of interview. Pertinent positives and negatives as discussed in HPI, a complete review of systems was performed and all other systems are negative. 06/21/2024 Patient seen and examined at bedside. Continues to have mild pain at surgical site. Will work with PT and surgical team will reassess tomorrow for discharge. Patient is medically stable and optimized for discharge. Physical examination: Vital signs reviewed General: nontoxic, no distress, appears at stated age Derm: warm, dry, intact Head: atraumatic, normocephalic, symmetric Eyes: anicteric sclera Mouth: no lip lesion, mucus membranes moist Cardiovascular: S1 S2 reg, no murmur Lungs: CTA bilateral, no rhonchi, no rales, no accessory muscle use Abdominal: soft, non-tender to palpation, nondistended Extremities: No cyanosis, clubbing, or pedal edema. Neuro: Alert, Oriented to person, time and place, Gross neurological examination did not reveal any focal deficits. Cranial nerves II to XII grossly intact. Bilateral upper and lower extremity muscle strength intact and sensation intact with the exception of R knee due to recent surgery, distal RLE strength at the ankle intact Psych: well appearing, appropriate affect Today's labs significant for WBC 13.99, hemoglobin 12.8, immature granulocytes 0.07, glucose 215 Assessment/Plan: 78-year-old male with past medical A-fib on Eliquis, hypertension, and asthma who is status post right knee TKA with Dr. Trevino. We have been asked to see the patient in consultation for medical management. Acute: Leukocytosis, reactive postprocedure Monitor CBC Hyperglycemia Begin Accu-Cheks and low-dose sliding scale, monitor for hypoglycemia HbA1c pending Osteoarthritis of the right knee status post TKA Pain control and DVT prophylaxis per primary team Chronic: A-fib (anticoagulated with Eliquis) Restarted on Eliquis 5 twice daily Continue Cardizem 180 mg daily Continue Lopressor 50 mg twice daily Continue simvastatin 40 mg at bedtime Hypertension Continue hydralazine 25 mg twice daily Continue Lopressor 50 mg twice daily Continue losartan 100 mg daily Asthma Continue albuterol every 6 hours as needed Continue Singulair 10 mg p.o. at bedtime GERD Continue pantoprazole 40 mg daily CODE STATUS: Full code Patient has been medically optimized for discharge. Will continue to follow. Thank you for allowing us to participate in the care of this pleasant patient. Do not hesitate to contact us with questions. Someone can be reached from the [facility] hospitalist group all hours of the day at [phone] or via [employer]. I have seen and evaluated the patient today. Discussed with the resident and agree with the residents finding and plan as documented in the resident's note. Changes highlighted in blue font. Objective - Vital Signs Vital signs: Vital Signs Temp 98.0 F 06/21/24 00:18 Pulse 64 06/21/24 00:18 Resp 20 06/21/24 00:18 BP 147/77 06/21/24 00:18 Pulse Ox 95 06/21/24 00:18 FiO2 Intake & Output 06/20/24 06/21/24 06/21/24 18:59 06:59 18:59 Intake Total 850 540 Output Total 100 Balance 750 540 Weight 96.3 kg Intake: IV 850 Oral 540 Output: Estimated Blood Loss 100 Other: Voiding Method Toilet # Voids 3 - Labs CBC & Chem 7: 06/21/24 05:33 Labs: Abnormal Lab Results - Last 24 Hours (Table) 06/20/24 06/20/24 06/20/24 Range/Units 12:50 17:29 20:44 POC Glucose (mg/dL) 115 H 161 H 185 H (70-110) mg/dL 06/21/24 Range/Units 06:21 POC Glucose (mg/dL) 170 H (70-110) mg/dL
[2024-06-21] MEDS: INSULIN ASPART (NovoLOG) 100 UNIT/ML VIAL SQ SCH (12:35)
[2024-06-21] MEDS: CITALOPRAM HYDROBROMIDE 20 MG TAB PO SCH (12:35)
[2024-06-21 16:34] LABS: Glucose,Whole Blood 111 mg/dL (70-110)
[2024-06-21 20:35] LABS: Glucose,Whole Blood 131 mg/dL (70-110)
[2024-06-21] MEDS: ATORVASTATIN 20 MG TAB PO SCH (20:36)
[2024-06-21] MEDS: MONTELUKAST 10 MG TAB PO SCH (20:37)
[2024-06-22] MEDS: HYDROmorphone 0.5 MG/0.5 ML SYRINGE IVP PRN (00:21)
[2024-06-22 06:40] LABS: Glucose,Whole Blood 171 mg/dL (70-110)
[2024-06-22] MEDS: HYDROcodone/APAP 10-325MG 1 EACH TAB PO PRN (09:55)
--- NOTE | 2024-06-22 10:01 | P.PN ---
Subjective Doing relatively well. Complaining of some pain/swelling in knee. Objective - Vital Signs Vital signs: Vital Signs Temp 99.1 F 06/22/24 07:00 Pulse 62 06/22/24 07:00 Resp 18 06/22/24 07:00 BP 166/76 06/22/24 07:00 Pulse Ox 94 L 06/22/24 07:00 FiO2 Intake & Output 06/21/24 06/22/24 06/22/24 18:59 06:59 18:59 Intake Total 600 Balance 600 Intake: Oral 600 Other: Voiding Method Toilet # Voids 3 2 # Bowel Movements 1 - Exam Sitting up in chair. Alert and can answer questions. Dressing intact. Mild swelling in thigh and calf. Moves foot/ankle up/down. - Labs CBC & Chem 7: 06/21/24 05:33 Labs: Abnormal Lab Results - Last 24 Hours (Table) 06/21/24 06/21/24 06/21/24 Range/Units 11:39 16:32 20:34 POC Glucose (mg/dL) 215 H 111 H 131 H (70-110) mg/dL 06/22/24 Range/Units 06:25 POC Glucose (mg/dL) 171 H (70-110) mg/dL Assessment and Plan Assessment: POD#2 s/p TKA Plan: Continue treatment as outlined previously. Encourage gentle knee ROM. Patient will likely d/c home tomorrow.
[2024-06-22 11:20] LABS: Glucose,Whole Blood 155 mg/dL (70-110)
--- NOTE | 2024-06-22 11:32 | P.PN ---
Subjective Progress Note Date: 06/22/24 78 year old M with PMH of A-Fib on Eliquis, HTN, Asthma presents to [facility] for elective surgery. He underwent right total knee arthroplasty with Dr. Trevino on 06/20. [facility] Physicians consulted for medical management of this patient. 06/22 Patient was seen and examined. Reports 5/10 knee pain. Plans to work with PT and OT. Urinating freely. Had a bowel movement. General: non toxic, no distress, appears at stated age Derm: warm, dry Head: atraumatic, normocephalic, symmetric Eyes: EOMI, no lid lag, anicteric sclera Mouth: no lip lesion, mucus membranes moist Cardiovascular: S1S2 reg, no murmur Lungs: Clear to auscultation bilateral, no rhonchi, no rales , no accessory muscle use Ext: no gross muscle atrophy, no edema, no contractures Neuro: no focal neuro deficits Psych: Alert, oriented, appropriate affect Based on my assessment of this patient, this patient meets a high complexity level of care. Leukocytosis: Likely reactive. No signs of active infection. Monitor fever profile. Acute blood loss anemia which is an expected result of surgery Hyperglycemia: ISS + Acchchecks ACHS with hypoglycemic precautions. AFib: Cardizem 180 mg PO QD. Eliquis 5 mg PO BID. HTN: Cardizem as above. Hydralazine 25 mg PO BID. Losartan 100 mg PO QD. Metoprolol 50 mg PO BID. Stop NS + LR. HLD: Lipitor 20 mg PO QHS. Depression: Citalopram 40 mg PO QD. Asthma: Singulair 10 mg PO QHS. GERD: Protonix 40 mg PO PRN. CODE STATUS: FULL CODE DVT Prophylaxis: Eliquis. GI Prophylaxis: Protonix. Designated medical POA if patient is not able to make medical decisions for themselves: I have reviewed the following [employer] consultant notes: Ortho I have reviewed the results of the following tests: I have ordered the following tests: I have discussed the care of this patient with the following independent historian: SHANI. I have independently interpreted the following test below: I have discussed the management of this patient with the following physician: Objective - Vital Signs Vital signs: Vital Signs Temp 99.1 F 06/22/24 07:00 Pulse 62 06/22/24 07:00 Resp 18 06/22/24 07:00 BP 166/76 06/22/24 07:00 Pulse Ox 94 L 06/22/24 07:00 FiO2 Intake & Output 06/21/24 06/22/24 06/22/24 18:59 06:59 18:59 Intake Total 600 Balance 600 Intake: Oral 600 Other: Voiding Method Toilet # Voids 3 2 # Bowel Movements 1 - Labs CBC & Chem 7: 06/21/24 05:33 Labs: Abnormal Lab Results - Last 24 Hours (Table) 06/21/24 06/21/24 06/21/24 Range/Units 05:33 11:39 16:32 WBC 13.99 H (4.50-10.00) X 10*3/uL RBC 4.34 L (4.40-5.60) X 10*6/uL Hgb 12.8 L (13.0-17.0) g/dL MCHC 31.4 L (32.0-37.0) g/dL Immature Gran # 0.07 H (0.00-0.04) X 10*3/uL Neutrophils # 12.57 H (1.80-7.70) X 10*3/uL Lymphocytes # 0.69 L (0.90-5.00) X 10*3/uL Eosinophils # 0 L (0.04-0.35) X 10*3/uL POC Glucose (mg/dL) 215 H 111 H (70-110) mg/dL 06/21/24 06/22/24 Range/Units 20:34 06:25 WBC (4.50-10.00) X 10*3/uL RBC (4.40-5.60) X 10*6/uL Hgb (13.0-17.0) g/dL MCHC (32.0-37.0) g/dL Immature Gran # (0.00-0.04) X 10*3/uL Neutrophils # (1.80-7.70) X 10*3/uL Lymphocytes # (0.90-5.00) X 10*3/uL Eosinophils # (0.04-0.35) X 10*3/uL POC Glucose (mg/dL) 131 H 171 H (70-110) mg/dL
[2024-06-22 12:40] LABS: ALT 11 U/L (10-49); AST 15 U/L (14-35); Alkaline Phosphatase 65 U/L (41-126); BUN/Creat Ratio 15.73 Ratio (12.00-20.00); Blood Urea Nitrogen 17.3 mg/dL (9.0-27.0); Calcium 8.5 mg/dL (8.7-10.3); Carbon Dioxide 24.4 mmol/L (21.6-31.8); Chloride 105 mmol/L (96-109); Glucose 158 mg/dL (70-110); Potassium 4.2 mmol/L (3.5-5.5); Sodium 139 mmol/L (135-145); Total Bilirubin 0.3 mg/dL (0.3-1.2)
[2024-06-22 16:27] LABS: Glucose,Whole Blood 115 mg/dL (70-110)
[2024-06-22 20:45] LABS: Glucose,Whole Blood 138 mg/dL (70-110)
[2024-06-23 06:14] LABS: Glucose,Whole Blood 162 mg/dL (70-110)
[2024-06-23 08:05] VITALS: PULSE 60; RESP 15; TEMP 97.6
[2024-06-23 08:18] VITALS: BP 158/68
--- NOTE | 2024-06-23 08:23 | P.PN ---
Subjective Progress Note Date: 06/23/24 No acute events overnight. Patient is doing well this morning. The pain in their knee is mild. They have walked to the bathroom with a walker and assistance. They deny chest pain or shortness of breath. Objective - Vital Signs Vital signs: Vital Signs Temp 97.6 F 06/23/24 07:11 Pulse 60 06/23/24 07:11 Resp 15 06/23/24 07:11 BP 158/68 06/23/24 07:11 Pulse Ox 97 06/23/24 07:11 FiO2 Intake & Output 06/22/24 06/23/24 06/23/24 18:59 06:59 18:59 Other: Voiding Method Toilet # Voids 4 2 - Exam Patient was examined at bedside. Patient is resting comfortably in bed. No apparent distress. They are awake, alert and able to answer questions. On inspection the surgical knee dressing is intact, there is no drainage or strikethrough. Part of the border of the dressing started to peel up, it was reinforced with a Tegaderm. The skin surrounding the dressing is free of erythema. There is mild swelling in the operative thigh. Operative femoral nerve function is intact. The operative calf is soft to compression. The patient is able to actively plantarflex and dorsiflex their operative ankle and toes. - Labs CBC & Chem 7: 06/21/24 05:33 06/22/24 05:59 Labs: Abnormal Lab Results - Last 24 Hours (Table) 06/22/24 06/22/24 06/22/24 Range/Units 05:59 05:59 11:17 Glucose 158 H (70-110) mg/dL POC Glucose (mg/dL) 155 H (70-110) mg/dL Hemoglobin A1c 7.1 H (<=6.0) % Calcium 8.5 L (8.7-10.3) mg/dL Total Protein 6.0 L (6.2-8.2) g/dL 06/22/24 06/22/24 06/23/24 Range/Units 16:25 20:43 06:12 Glucose (70-110) mg/dL POC Glucose (mg/dL) 115 H 138 H 162 H (70-110) mg/dL Hemoglobin A1c (<=6.0) % Calcium (8.7-10.3) mg/dL Total Protein (6.2-8.2) g/dL Assessment and Plan Assessment: Postop day #3 status post right total knee arthroplasty Right knee severe osteoarthritis Right knee pain Plan: 1. Weightbearing as tolerated on the operative extremity. Up with assistance and a walker. 2. DVT prophylaxis ok to resume home dose of Eliquis (5mg BID). Will continue home dose after d/c. 3. Physical therapy for gait training and mobilization. 4. Leave surgical dressing in place. 5. Internal medicine for perioperative medical management 6. Disposition: The patient would like to discharge to rehab. Will have y sical therapy reevaluate today and pending their evaluation will determine discharge to rehab or discharge home today. Patient's pain has been controlled with oral Quimby. Paper prescription placed in patient's chart. Start form completed and placed in patient's chart.
[2024-06-23 09:02] LABS: Basophils # (A) 0.02 X 10*3/uL (0.00-0.10); Basophils % (A) 0.2 %; Eosinophils # (A) 0.09 X 10*3/uL (0.04-0.35); Eosinophils % (A) 0.9 %; HCT 38.4 % (39.6-50.0); HGB 12.4 g/dL (13.0-17.0); Lymphocytes # (A) 1.78 X 10*3/uL (0.90-5.00); Lymphocytes % (A) 17.1 %; MCHC 32.3 g/dL (32.0-37.0); Mean Platelet Volume 10.4 FL (9.5-12.2); Monocytes % (A) 12.5 %; NRBC Per 100 WBC 0 X 10*3/uL (0.00-0.01); Neutrophils # (A) 7.18 X 10*3/uL (1.80-7.70); Neutrophils % (A) 68.9 %; Platelet Count 189 X 10*3/uL (140-440); RBC 4.13 X 10*6/uL (4.40-5.60); RDW 13.9 % (11.5-14.5); WBC 10.41 X 10*3/uL (4.50-10.00)
[2024-06-23 11:53] LABS: Glucose,Whole Blood 128 mg/dL (70-110)
--- NOTE | 2024-06-23 12:35 | P.DS ---
Providers Attending physician: Adalberto Trevino Consults: 06/20/24 16:18 Consult Physician Routine Consulting Provider: Huseyin Bermudez Consult Reason/Comments: post op medical management Do you want consulting provider notified?: Yes Primary care physician: [facility] Course: This is a 78-year-old patient, with past medical history of right severe knee osteoarthritis, who failed nonsurgical conservative management. On 06/20/2024 the patient presented to the [facility] pre-op department for scheduled denisha total knee arthroplasty with Dr. Trevino. The patient tolerated the procedure well. The patient was transferred to the orthopedic floor. The patient had no acute events over night. The patient's pain has been well-controlled. Start form completed and placed in the patient's chart. Patient worked with physical therapy and it was determined they could discharge home. Plan to discharge home today. Plan follow up in two weeks in our office. Please see med rec for a list of accurate medications. Will resume home Eliquis for DVT prophylaxis. Assessment: Postop day #3 status post right total knee arthroplasty Right knee severe osteoarthritis Right knee pain Plan - Discharge Summary Discharge Rx Participant: No New Discharge Prescriptions: New HYDROcodone/APAP 5-325MG [Powers 5-325] 1 - 2 tab PO Q6HR PRN #56 tab PRN Reason: Pain Omeprazole [PriLOSEC] 40 mg PO DAILY #30 cap Ondansetron [Zofran] 4 mg PO Q8HR PRN #20 tab PRN Reason: Nausea Docusate [Colace] 100 mg PO BID #60 capsule Continue Cholecalciferol [Vitamin D3 (25 Mcg = 1000 Iu)] 1,000 unit PO DAILY Losartan Potassium [Cozaar] 100 mg PO DAILY Multivitamin [Men's Multi-Vitamin] 1 each PO DAILY Citalopram Hydrobromide [Citalopram HBr] 40 mg PO DAILY tadalafiL [Cialis] 5 mg PO DAILY PRN PRN Reason: E.D hydrALAZINE HCL [Apresoline] 25 mg PO BID Simvastatin 40 mg PO HS Glucosamine-Chondr 500-400Mg 1 each PO DAILY Diltiazem Cd [Cardizem CD] 180 mg PO DAILY Apixaban [Eliquis] 5 mg PO BID Omeprazole 20 mg PO DAILY PRN PRN Reason: reflux Montelukast [Singulair] 10 mg PO HS Metoprolol Tartrate [Lopressor] 50 mg PO BID Albuterol Inhaler [Ventolin Hfa Inhaler] 1 - 2 puff INHALATION Q6H PRN PRN Reason: asthma No Action Ibuprofen [Advil] 400 mg PO Q6H PRN PRN Reason: Pain Discharge Medication List Cholecalciferol [Vitamin D3 (25 Mcg = 1000 Iu)] 1,000 unit PO DAILY 02/12/18 [History] Citalopram Hydrobromide [Citalopram HBr] 40 mg PO DAILY 02/12/18 [History] Losartan Potassium [Cozaar] 100 mg PO DAILY 02/12/18 [History] Multivitamin [Men's Multi-Vitamin] 1 each PO DAILY 02/12/18 [History] Albuterol Inhaler [Ventolin Hfa Inhaler] 1 - 2 puff INHALATION Q6H PRN 06/16/24 [History] Apixaban [Eliquis] 5 mg PO BID 06/16/24 [History] Diltiazem Cd [Cardizem CD] 180 mg PO DAILY 06/16/24 [History] Glucosamine-Chondr 500-400Mg 1 each PO DAILY 06/16/24 [History] Ibuprofen [Advil] 400 mg PO Q6H PRN 06/16/24 [History] Metoprolol Tartrate [Lopressor] 50 mg PO BID 06/16/24 [History] Montelukast [Singulair] 10 mg PO HS 06/16/24 [History] Omeprazole 20 mg PO DAILY PRN 06/16/24 [History] Simvastatin 40 mg PO HS 06/16/24 [History] hydrALAZINE HCL [Apresoline] 25 mg PO BID 06/16/24 [History] tadalafiL [Cialis] 5 mg PO DAILY PRN 06/16/24 [History] Docusate [Colace] 100 mg PO BID #60 capsule 06/21/24 [Rx] HYDROcodone/APAP 5-325MG [Powers 5-325] 1 - 2 tab PO Q6HR PRN #56 tab 06/21/24 [Rx] Omeprazole [PriLOSEC] 40 mg PO DAILY #30 cap 06/21/24 [Rx] Ondansetron [Zofran] 4 mg PO Q8HR PRN #20 tab 06/21/24 [Rx] Follow up Appointment(s)/Referral(s): [facility], [NON-STAFF] - 1-2 Days ([facility] will call you to schedule your in home nursing and physical therapy visits. ) Adalberto Trevino MD [Medical Doctor] - 2 Weeks Activity/Diet/Wound Care/Special Instructions: 1. Weight-bear as tolerated on your operative extremity unless instructed otherwise. Use a walker or other assistive device to ambulate. 2. Leave surgical dressing in place. If your dressing becomes saturated with blood, there is drainage, or the dressing becomes loose please contact the office. 3. It is okay to shower with your surgical dressing, but do not submerge in water (no hot tubs, bath's, swimming etc.) 4. Make sure to take her blood clot prevention medication as prescribed (aspirin, Eliquis, Xarelto, and Plavix are commonly prescribed medications for blood clot prevention) patient will resume home Eliquis. 5. While taking Powers or Percocet for pain make sure you're taking a stool softener (Colace) and drink lots of water. 6. Keep all follow-up appointments as scheduled. You will usually be seen in 1-2 weeks following surgery. 7. Please contact the office with any questions or concerns [phone] Discharge Disposition: HOME WITH HOME HEALTH SERVICES
--- NOTE | 2024-06-23 14:14 | P.PN ---
Subjective Progress Note Date: 06/23/24 78 year old M with PMH of A-Fib on Eliquis, HTN, Asthma presents to [facility] for elective surgery. He underwent right total knee arthroplasty with Dr. Trevino on 06/20. [facility] consulted for medical management of this patient. 06/22 Patient was seen and examined. Reports 5/10 knee pain. Plans to work with PT and OT. Urinating freely. Had a bowel movement. 06/23 Patient was seen and examined. Well controlled knee pain. Working well with PT and OT. Plans for discharge home. CBC WBC 10.41, RBC 4.13, Hg 12.4, Hct 38.4. General: non toxic, no distress, appears at stated age Derm: warm, dry Head: atraumatic, normocephalic, symmetric Eyes: EOMI, no lid lag, anicteric sclera Mouth: no lip lesion, mucus membranes moist Cardiovascular: S1S2 reg, no murmur Lungs: Clear to auscultation bilateral, no rhonchi, no rales , no accessory muscle use Ext: no gross muscle atrophy, no edema, no contractures Neuro: no focal neuro deficits Psych: Alert, oriented, appropriate affect Based on my assessment of this patient, this patient meets a high complexity level of care. Leukocytosis: Likely reactive. No signs of active infection. Monitor fever profile. Acute blood loss anemia which is an expected result of surgery Hyperglycemia: ISS + Acchchecks ACHS with hypoglycemic precautions. AFib: Cardizem 180 mg PO QD. Eliquis 5 mg PO BID. HTN: Cardizem as above. Hydralazine 25 mg PO BID. Losartan 100 mg PO QD. Metoprolol 50 mg PO BID. Stop NS + LR. HLD: Lipitor 20 mg PO QHS. Depression: Citalopram 40 mg PO QD. Asthma: Singulair 10 mg PO QHS. GERD: Protonix 40 mg PO PRN. Medically stable for discharge. CODE STATUS: FULL CODE DVT Prophylaxis: Eliquis. GI Prophylaxis: Protonix. Designated medical POA if patient is not able to make medical decisions for themselves: I have reviewed the following sales support consultant notes: Ortho I have reviewed the results of the following tests: CBC I have ordered the following tests: I have discussed the care of this patient with the following independent historian: RN. Case management. I have independently interpreted the following test below: I have discussed the management of this patient with the following physician: Objective - Vital Signs Vital signs: Vital Signs Temp 97.6 F 06/23/24 07:11 Pulse 60 06/23/24 08:15 Resp 15 06/23/24 08:15 BP 158/68 06/23/24 07:11 Pulse Ox 97 06/23/24 07:11 FiO2 Intake & Output 06/22/24 06/23/24 06/23/24 18:59 06:59 18:59 Other: Voiding Method Toilet Toilet # Voids 4 2 - Labs CBC & Chem 7: 06/23/24 03:53 06/22/24 05:59 Labs: Abnormal Lab Results - Last 24 Hours (Table) 06/22/24 06/22/24 06/23/24 Range/Units 16:25 20:43 03:53 WBC 10.41 H (4.50-10.00) X 10*3/uL RBC 4.13 L (4.40-5.60) X 10*6/uL Hgb 12.4 L (13.0-17.0) g/dL Hct 38.4 L (39.6-50.0) % Monocytes # 1.30 H (0.20-1.00) X 10*3/uL POC Glucose (mg/dL) 115 H 138 H (70-110) mg/dL 06/23/24 06/23/24 Range/Units 06:12 11:51 WBC (4.50-10.00) X 10*3/uL RBC (4.40-5.60) X 10*6/uL Hgb (13.0-17.0) g/dL Hct (39.6-50.0) % Monocytes # (0.20-1.00) X 10*3/uL POC Glucose (mg/dL) 162 H 128 H (70-110) mg/dL
== END 2024-06-23 15:35 | disposition home health service (06) ==
LOC: OR 11:05 → 4SSUR 16:35 → OR 06-23 15:35
PROVIDERS: ATTEND Orthopaedic Surgery
DX: M17.11 Unilateral primary osteoarthritis, right knee (principal); G89.18 Other acute postprocedural pain; M21.161 Varus deformity, not elsewhere classified, right knee; D62 Acute posthemorrhagic anemia; D72.829 Elevated white blood cell count, unspecified; I10 Essential (primary) hypertension; J45.909 Unspecified asthma, uncomplicated; I48.0 Paroxysmal atrial fibrillation; E11.65 Type 2 diabetes mellitus with hyperglycemia; F32.A Depression, unspecified; E78.5 Hyperlipidemia, unspecified; K21.9 Gastro-esophageal reflux disease without esophagitis; G47.30 Sleep apnea, unspecified; N40.0 Benign prostatic hyperplasia without lower urinary tract symptoms; H91.90 Unspecified hearing loss, unspecified ear; F43.10 Post-traumatic stress disorder, unspecified; Z85.828 Personal history of other malignant neoplasm of skin; Z87.891 Personal history of nicotine dependence; Z79.899 Other long term (current) drug therapy; Z79.01 Long term (current) use of anticoagulants; Z98.890 Other specified postprocedural states
CPT/HCPCS: 0055T; 27447; 64447; 64999; 85025

== ENCOUNTER → 2024-08-27 | Outpatient (CLI) | payer MEDICARE, OTHER ==
--- NOTE | 2024-08-27 10:36 | CT ---
EXAMINATION TYPE: CT left knee - TRIPP Protocol DATE OF EXAM: 08/27/2024 10:25 AM COMPARISON: None.. CLINICAL INDICATION: Male, 78 years old with history of M17.12 UNILATERAL PRIMARY OSTEOARTHRITIS, LE FT KN; PHH, LT knee TRIPP, pain, TECHNIQUE: Axial images were obtained of the bilateral hips, knee and bilateral ankles: CT left knee - TRIPP Protocol, Additional coronal and sagittal reformatted images and soft tissue and bone window were obtained for review of the bilateral hips, knee and bilateral ankles. Contrast used: mL of , (None if empty) Oral contrast used: (None if empty) CT DLP: 933 mGycm, Automated exposure control for dose reduction was used. FINDINGS: Exam is for surgical planning and not for diagnostic purposes. The visualized portion of the hips demonstrate mild to moderate osteoarthrosis changes with osteophyt e formation of the acetabulum. No acute intrapelvic process. The bony structures of the pelvis are in tact. Mild to moderate disc space narrowing and vacuum disc phenomenon at lumbosacral junction is not ed. There is markedly enlarged prostate gland consistent with BPH present. The visualized knee demonstrates severe medial tibiofemoral compartment narrowing in the left knee. M etallic prosthesis right knee is noted. The visualized ankles demonstrates no suspicious abnormality. Other: No significant findings. IMPRESSION: As above. [facility], , 08/27/2024 10:34 AM
== END | disposition home or self-care (01) ==
LOC: RADCTMAIN 08:50
PROVIDERS: ATTEND Orthopaedic Surgery
DX: M17.12 Unilateral primary osteoarthritis, left knee (principal); N40.0 Benign prostatic hyperplasia without lower urinary tract symptoms; M51.369 Other intervertebral disc degeneration, lumbar region without mention of lumbar back pain or lower extremity pain; Z96.651 Presence of right artificial knee joint

== ENCOUNTER → 2024-10-02 | Outpatient (CLI) | payer MEDICARE, OTHER ==
[2024-10-02 10:08] LABS: Partial Thromboplastin Time 24.8 sec (22.0-30.0)
[2024-10-02 15:38] LABS: HCT 44.3 % (39.6-50.0); MCH 29.5 pg (27.0-32.0); MCHC 31.6 g/dL (32.0-37.0); MCV 93.3 FL (80.0-97.0); Mean Platelet Volume 9.9 FL (9.5-12.2); NRBC Per 100 WBC 0 X 10*3/uL (0.00-0.01); Platelet Count 227 X 10*3/uL (140-440); RBC 4.75 X 10*6/uL (4.40-5.60); RDW 13.8 % (11.5-14.5); WBC 6.46 X 10*3/uL (4.50-10.00)
[2024-10-02 15:56] LABS: ALT 14 U/L (10-49); AST 17 U/L (14-35); Albumin 4.3 g/dL (3.8-4.9); Albumin/Globulin Ratio 1.79 Ratio (1.60-3.17); Alkaline Phosphatase 78 U/L (41-126); Blood Urea Nitrogen 17.7 mg/dL (9.0-27.0); Calcium 9.3 mg/dL (8.7-10.3); Carbon Dioxide 23.8 mmol/L (21.6-31.8); Chloride 108 mmol/L (96-109); Globulin 2.4 g/dL (1.6-3.3); Glucose 131 mg/dL (70-110); Potassium 4.3 mmol/L (3.5-5.5); Sodium 143 mmol/L (135-145); Total Bilirubin 0.3 mg/dL (0.3-1.2); Total Protein 6.7 g/dL (6.2-8.2)
[2024-10-02 19:22] LABS: INR 0.9 (<1.2); Prothrombin Time 10.5 sec (10.0-12.5)
== END | disposition home or self-care (01) ==
LOC: LABPAT 08:51
PROVIDERS: ATTEND Orthopaedic Surgery
DX: Z01.812 Encounter for preprocedural laboratory examination (principal); Z22.322 Carrier or suspected carrier of Methicillin resistant Staphylococcus aureus; M17.12 Unilateral primary osteoarthritis, left knee
CPT/HCPCS: 80053; 83036; 85027; 85610; 85730; 87070

== ENCOUNTER → 2024-10-06 | Outpatient (CLI) | payer MEDICARE, OTHER ==
--- NOTE | 2024-10-07 07:58 | US ---
EXAMINATION TYPE: US kidneys/renal and bladder DATE OF EXAM: 10/06/2024 COMPARISON: NONE CLINICAL INDICATION: Male, 78 years old with history of [id number] FLANK PAIN; TECHNIQUE: Grayscale imaging of the bilateral kidneys and urinary bladder: FINDINGS: EXAM MEASUREMENTS: Right Kidney: 13.8x6.5x5.9 cm Left Kidney: 12.1x6.1x5.3 cm Right Kidney: Upper pole cyst measuring 4.3x4.3x4.4cm. No hydronephrosis. Left Kidney: Mild pelviectasis. No calyceal dilatation to suggest hydronephrosis. Bladder: wnl Bilateral Jets seen: Yes ?Slightly enlarged prostate: 5.5x4.6x5.7cm IMPRESSION: 1. No hydronephrosis. There is mild pelviectasis in the left kidney, probably transient. Consider coco rt interval follow-up to exclude early developing hydronephrosis. 2. Prostatomegaly measuring up to 5.7 cm. Correlate with patient's symptoms and PSA values. [facility], , 10/07/2024 7:56 AM
== END | disposition home or self-care (01) ==
LOC: RADUSWWP 15:19
PROVIDERS: ATTEND Urology
DX: N40.0 Benign prostatic hyperplasia without lower urinary tract symptoms (principal); N28.89 Other specified disorders of kidney and ureter
CPT/HCPCS: 76770